=== PATIENT | female | born 1965 | race Caucasian/White ===

== ENCOUNTER 2016-09-12 10:38 | Outpatient (CLI) | payer OTHER | END 2016-09-12 10:39 | disposition home or self-care (01) | DX: Z00.00 Encounter for general adult medical examination without abnormal findings (principal) ==

== ENCOUNTER 2017-09-13 11:05 | Day surgery (SDC) | payer OTHER ==
[2017-09-13] MEDS ORDERED: LACTATED RINGERS 1,000 ML IV ONE ×2 (11:33→12:45)
[2017-09-13] MEDS ORDERED: MIDAZOLAM 2 MG/2 ML VIAL IVP ONE (12:00)
[2017-09-13] MEDS ORDERED: fentaNYL 100 MCG/2 ML VIAL IVP ONE (12:00)
[2017-09-13 14:02] VITALS: BP 92/46
== END 2017-09-13 11:06 | disposition home or self-care (01) ==
LOC: SDS 11:05
PROVIDERS: ATTEND Surgery
PROC: 0DJD8ZZ Inspection of Lower Intestinal Tract, Via Natural or Artificial Opening Endoscopic (ICD-10-PCS; principal; 2017-09-13 13:00)
DX: Z12.11 Encounter for screening for malignant neoplasm of colon (principal); K57.30 Diverticulosis of large intestine without perforation or abscess without bleeding
CPT/HCPCS: 45378; J7120

== ENCOUNTER 2018-10-17 15:03 | Outpatient (CLI) | payer OTHER ==
--- NOTE | 2018-10-30 09:18 | Mammography Report ---
Reason: SCREENING MAMMO Procedure Date: 10/17/2018 Accession Number: [id number] / [id number] Procedure: MARY ANNE - Screening Mammo w/Prakash CPT Code: FULL RESULT: EXAM: Screening Mammo w/Prakash; Right Breast Ultrasound. DATE: 10/17/2018 3:48 PM CLINICAL HISTORY: Palpable right breast mass TECHNIQUE: (B) - Bilateral CC and MLO views were obtained. 3-D mammography was performed. In addition, targeted right breast ultrasound was performed over the palpable abnormality. COMPARISON: 01/15/2017 PARENCHYMAL PATTERN: (A) - The breasts demonstrate scattered fibroglandular densities bilaterally. FINDINGS: No mammographic abnormality in the area of palpable abnormality which is approximately 8:00 position far lateral right breast, actually in the chest wall. There are no suspicious mammographic masses, calcifications, or areas of distortion. In addition, targeted right breast ultrasound was performed revealing a sharply marginated hyperechoic nonvascular mass most likely located in the subcutaneous compartment measuring 3 x 10 mm diameter. This correlates with the palpable abnormality. The findings were discussed with the patient. IMPRESSION: Benign findings. BI-RADS category 2. RECOMMENDATION: (ANNUAL) - Recommend routine annual screening mammography. BI-RADS CATEGORY: (2) - Benign Findings. STANDARD QUALIFYING STATEMENTS: 1. This examination was not reviewed with the aid of Computer-Aided Detection (CAD). 2. A negative or benign imaging report should not preclude biopsy if clinically suspicious findings are present. 3. Dense breasts may obscure an underlying neoplasm. 4. This examination was reviewed without the aid of 3D breast imaging (tomosynthesis).
== END 2018-10-17 15:04 | disposition home or self-care (01) ==
LOC: DI 15:03
DX: Z12.31 Encounter for screening mammogram for malignant neoplasm of breast (principal)
CPT/HCPCS: 77063; 77067

== ENCOUNTER 2019-03-13 07:30 | Outpatient (CLI) | payer OTHER ==
--- NOTE | 2019-03-13 08:25 | MRI Report ---
Reason: LUMBAR RADICULOPATHY, LEFT Procedure Date: 03/13/2019 Accession Number: [id number] / [id number] Procedure: MRI - Lumbar Spine W/O CPT Code: FULL RESULT: EXAM: MRI LUMBAR SPINE WITHOUT CONTRAST EXAM DATE: 03/13/2019 08:08 AM. CLINICAL HISTORY: 53-year-old female. LUMBAR RADICULOPATHY, LEFT. COMPARISON: LUMBAR SPINE 2 VIEW 02/17/2019 9:33 AM. TECHNIQUE: Multiplanar, multisequence T1-weighted and fluid-sensitive sequences of the lumbar spine from T12 to S1 without contrast. Other: None. FINDINGS: Spinal Canal: The conus terminates at L1. The conus medullaris and cauda equina are unremarkable. Alignment: No scoliosis or spondylolisthesis. Bone Marrow: Five upv-jxk-vfvjaks lumbar vertebral bodies are assumed. No gross fractures or bone lesions. No bone marrow replacement. Disk Levels/Facets: T12-L1: Unremarkable. L1-L2: Unremarkable. L2-L3: There is disk desiccation. Mild diffuse disk bulge. Mild anterior dural compression. No significant central canal narrowing. Mild bilateral foraminal narrowing. L3-L4: There is disk desiccation. Mild diffuse disk. Mild anterior dural compression. No significant central canal narrowing. Mild to moderate left to mild right foraminal narrowing. L4-L5: There is statistically. Mild diffuse disk bulge with an annular fissure. Mild anterior dural compression. No significant central canal narrowing. Mild bilateral foraminal narrowing. L5-S1: Mild disk height loss and desiccation. Mild diffuse disk bulge. Mild and due to compression. No significant central canal narrowing. Mild bilateral foraminal narrowing. Musculature: Normal. No edema or fatty atrophy. Other: The partially visualized retroperitoneum is unremarkable. IMPRESSION: 1. Mild multilevel degenerative spondylosis, as detailed above and summarized below. No acute fracture or malalignment. No bone marrow edema. No cord signal abnormality. 2. L2-L3: No significant central canal narrowing. Mild bilateral foraminal narrowing. 3. L3-L4: No significant central canal narrowing. Mild to moderate left to mild right foraminal narrowing. 4. L4-L5: No significant central canal narrowing. Mild bilateral foraminal narrowing. 5. L5-S1: No significant central canal narrowing. Mild bilateral foraminal narrowing. Comment: The following findings are so common in adults without low back pain that while we report their presence, they must be interpreted with caution and in the context of the clinical situation. (Reference Sonk et al, Spine 2001) Prevalence of findings in patients without low back pain: Disk degeneration (any evidence): 92% Disk desiccation/T2 signal loss: 83% Disk height loss: 56% Disk bulge: 64% Disk protrusion: 32% Annular tear/high intensity zone: 38% RADIA
== END 2019-03-13 07:31 | disposition home or self-care (01) ==
LOC: DI 07:30
PROVIDERS: ATTEND Orthopaedic Surgery Sports Medicine
DX: M51.36 Other intervertebral disc degeneration, lumbar region (principal); M48.061 Spinal stenosis, lumbar region without neurogenic claudication; M51.37 Other intervertebral disc degeneration, lumbosacral region; M48.07 Spinal stenosis, lumbosacral region
CPT/HCPCS: 72148

== ENCOUNTER 2019-10-29 16:35 | Outpatient (CLI) | payer OTHER | END 2019-10-29 16:36 | disposition home or self-care (01) | LOC: COV 16:35 | PROVIDERS: ATTEND Family Medicine | DX: R50.9 Fever, unspecified (principal); R05 Cough; M79.10 Myalgia, unspecified site; R53.83 Other fatigue; Z20.828 Contact with and (suspected) exposure to other viral communicable diseases | CPT/HCPCS: 81599 ==

== ENCOUNTER 2019-11-19 08:00 | Outpatient (CLI) | payer OTHER | END 2019-11-19 08:01 | disposition home or self-care (01) | LOC: LAB 08:00 | PROVIDERS: ATTEND Emergency Medicine | DX: Z11.59 Encounter for screening for other viral diseases (principal) | CPT/HCPCS: 81599 ==

== ENCOUNTER 2020-03-30 09:40 | Outpatient (CLI) | payer OTHER ==
[2020-03-30 12:14] LABS: BASOPHILS # (AUTO) 0.1 10^3/uL (0.0-0.1); BASOPHILS % (AUTO) 1.2 %; EOSINOPHILS # (AUTO) 0.2 10^3/uL (0.0-0.7); EOSINOPHILS % (AUTO) 3.1 %; HGB - HEMOGLOBIN 13.3 g/dL (12.0-16.0); LYMPHOCYTES # (AUTO) 1.7 10^3/uL (1.5-3.5); LYMPHOCYTES % (AUTO) 33.7 %; MEAN CORPUSCULAR HEMOGLOBIN 29.2 pg (27.0-31.0); MEAN CORPUSCULAR HGB CONC 31.3 g/dL (32.0-36.0); MEAN CORPUSCULAR VOLUME 93.4 fL (81.0-99.0); MEAN PLATELET VOLUME 10.6 fL (7.9-10.8); MONOCYTES # (AUTO) 0.4 10^3/uL (0.0-1.0); MONOCYTES % (AUTO) 6.8 %; NEUTROPHILS # (AUTO) 2.8 10^3/uL (1.5-6.6); PLT - PLATELET COUNT 286 10^3/uL (130-450); RED BLOOD COUNT 4.55 10^6/uL (4.20-5.40); RED CELL DISTRIBUTION WIDTH 13.6 % (12.0-15.0); WHITE BLOOD COUNT 5.1 x10^3/uL (4.8-10.8)
[2020-03-30 12:48] LABS: ALBUMIN 4.7 g/dL (3.2-5.5); ALBUMIN/GLOBULIN RATIO 1.7 (1.0-2.2); ALKALINE PHOSPHATASE 58 IU/L (42-121); ALT ALANINE AMINOTRANSFERASE 25 IU/L (10-60); AST ASPARTATE AMINOTRANSFERASE 20 IU/L (10-42); BILIRUBIN,TOTAL 1.1 mg/dL (0.2-1.0); BUN - BLOOD UREA NITROGEN 14 mg/dL (6-20); CALCIUM 9.4 mg/dL (8.5-10.3); CARBON DIOXIDE - CO2 27 mmol/L (21-32); CHLORIDE 101 mmol/L (101-111); CHOL/HDL RATIO 2.3 (<4.4); CHOLESTEROL 219 mg/dL; CREATININE 0.8 mg/dL (0.4-1.0); GLUCOSE 78 mg/dL (70-100); HDL CHOLESTEROL 97 mg/dL; LDL CHOLESTEROL,CALCULATED 108 mg/dL; LDL/HDL RATIO 1.1 (<4.4); SODIUM 137 mmol/L (135-145); TOTAL PROTEIN 7.5 g/dL (6.7-8.2); VLDL CHOLESTEROL 14 mg/dL
== END 2020-03-30 23:59 | disposition home or self-care (01) ==
LOC: LAB.WCP 09:40
PROVIDERS: ATTEND Nurse Practitioner
DX: Z00.00 Encounter for general adult medical examination without abnormal findings (principal); Z87.19 Personal history of other diseases of the digestive system; Z13.228 Encounter for screening for other metabolic disorders; Z13.220 Encounter for screening for lipoid disorders
CPT/HCPCS: 36415; 80053; 80061; 83721; 85025

== ENCOUNTER 2021-06-23 11:17 | Outpatient (CLI) | payer OTHER ==
--- NOTE | 2021-06-24 11:30 | Mammography Report ---
BILATERAL DIGITAL SCREENING MAMMOGRAM 3D/2D: 06/23/2021 CLINICAL: Routine screening. Comparison is made to exams dated: 10/17/2018 mammogram - [facility] and 05/01/2014 mammogram - [facility]. There are scattered fibroglandular elements in both breasts . No significant masses, calcifications, or other findings are seen in either breast. There has been no significant interval change. IMPRESSION: NEGATIVE There is no mammographic evidence of malignancy. A 1 year screening mammogram is recommended. This exam was interpreted at Station ID: [id number]. NOTE: For mammograms, a report in lay terms will be sent to the patient. Approximately 15% of breast malignancies will not be visualized mammographically. In the management of a palpable breast mass, a negative mammogram must not discourage biopsy of a clinically suspicious lesion. Electronically Signed By: Bonilla Cadet acr/penrad:06/23/2021 16:41:52 ACR BI-RADS Category 1: Negative 3341F PARENCHYMAL PATTERN: (A) - The breast(s) demonstrate(s) scattered fibroglandular densities. BI-RADS CATEGORY: (1) - 1 RECOMMENDATION: (ANNUAL) - Recommend routine annual screening mammography. [id number] 1 year screening LATERALITY: (B)
== END 2021-06-23 11:18 | disposition home or self-care (01) ==
LOC: DI 11:17
DX: Z12.31 Encounter for screening mammogram for malignant neoplasm of breast (principal)

== ENCOUNTER 2022-11-22 08:48 | Outpatient (CLI) | payer OTHER ==
--- NOTE | 2022-11-23 09:12 | Mammography Report ---
BILATERAL DIGITAL SCREENING MAMMOGRAM 3D/2D: 11/22/2022 CLINICAL: Routine screening. Comparison is made to exams dated: 06/23/2021 mammogram, 10/17/2018 mammogram - [facility], and 05/01/2014 mammogram - [facility]. There are scattered areas of fibroglandular density in both breasts (category b / 25%-50% glandular t issue). No significant masses, calcifications, or other findings are seen in either breast. There has been no significant interval change. IMPRESSION: NEGATIVE There is no mammographic evidence of malignancy. A 1 year screening mammogram is recommended. Based on the Tyrer Cuzick model (a risk assessment model) the patients lifetime risk is 5.9% and her 10 year risk is 1.8%. According to the ACR, ACS, and NCCN guidelines, an annual breast MRI exam armando g with mammogram is recommended if the patients lifetime risk is 20% or greater. This exam was interpreted at Station ID: [id number]. NOTE: For mammograms, a report in lay terms will be sent to the patient. Approximately 15% of breast malignancies will not be visualized mammographically. In the management of a palpable breast mass, a negative mammogram must not discourage biopsy of a clinically suspicious lesion. Electronically Signed By: Karri josue/melony:11/22/2022 10:37:32 letter sent: No_Letter ACR BI-RADS Category 1: Negative 3341F PARENCHYMAL PATTERN: (A) - The breast(s) demonstrate(s) scattered fibroglandular densities. BI-RADS CATEGORY: (1) - 1 Mammogram [id number] 1 year screening LATERALITY: (B)
== END 2022-11-22 08:49 | disposition home or self-care (01) ==
LOC: DI 08:48
DX: Z12.31 Encounter for screening mammogram for malignant neoplasm of breast (principal)

== ENCOUNTER 2023-08-08 10:15 | Outpatient (CLI) | payer OTHER ==
[2023-08-08 10:52] LABS: BASOPHILS # (AUTO) 0.1 10^3/uL (0.0-0.1); BASOPHILS % (AUTO) 1.1 %; EOSINOPHILS # (AUTO) 0.2 10^3/uL (0.0-0.7); EOSINOPHILS % (AUTO) 2.8 %; HCT - HEMATOCRIT 43.9 % (37.0-47.0); HGB - HEMOGLOBIN 13.7 g/dL (12.0-16.0); LYMPHOCYTES % (AUTO) 31.9 %; MEAN CORPUSCULAR HEMOGLOBIN 28.5 pg (27.0-31.0); MEAN CORPUSCULAR HGB CONC 31.2 g/dL (32.0-36.0); MEAN CORPUSCULAR VOLUME 91.3 fL (81.0-99.0); MEAN PLATELET VOLUME 9.5 fL (7.9-10.8); MONOCYTES # (AUTO) 0.5 10^3/uL (0.0-1.0); MONOCYTES % (AUTO) 7.7 %; NEUTROPHILS # (AUTO) 3.4 10^3/uL (1.5-6.6); NEUTROPHILS % (AUTO) 56.2 %; PLT - PLATELET COUNT 302 10^3/uL (130-450); RED BLOOD COUNT 4.81 10^6/uL (4.20-5.40); RED CELL DISTRIBUTION WIDTH 13.6 % (12.0-15.0); WHITE BLOOD COUNT 6.1 x10^3/uL (4.8-10.8)
[2023-08-08 11:28] LABS: ALBUMIN 4.6 g/dL (3.2-5.5); ALBUMIN/GLOBULIN RATIO 1.7 (1.0-2.2); ALKALINE PHOSPHATASE 70 IU/L (42-121); ALT ALANINE AMINOTRANSFERASE 25 IU/L (10-60); AST ASPARTATE AMINOTRANSFERASE 23 IU/L (10-42); BILIRUBIN,TOTAL 0.5 mg/dL (0.2-1.0); BUN - BLOOD UREA NITROGEN 15 mg/dL (6-20); CALCIUM 9.6 mg/dL (8.5-10.3); CARBON DIOXIDE - CO2 29 mmol/L (21-32); CHLORIDE 105 mmol/L (101-111); CHOL/HDL RATIO 2.3 (<4.4); CHOLESTEROL 203 mg/dL; CREATININE 0.8 mg/dL (0.6-1.3); GFR - MDRD 74 (>89); GLUCOSE 78 mg/dL (74-104); HDL CHOLESTEROL 89 mg/dL; LDL CHOLESTEROL,CALCULATED 98 mg/dL; LDL/HDL RATIO 1.1 (<4.4); POTASSIUM 4.2 mmol/L (3.5-4.5); SODIUM 141 mmol/L (135-145); TOTAL PROTEIN 7.3 g/dL (6.4-8.9); TRIGLYCERIDES 81 mg/dL (48-352); VLDL CHOLESTEROL 16 mg/dL
[2023-08-08 11:33] LABS: THYROID STIMULATING HORMONE 2.64 uIU/mL (0.34-5.60)
--- NOTE | 2023-08-08 12:40 | XRAY Report ---
PROCEDURE: Hips w/Pelvis 2-3V BL INDICATIONS: LEFT HIP PAIN TECHNIQUE: AP view the pelvis and bilateral frog-leg lateral view(s) of the hips were acquired. COMPARISON: None FINDINGS: Bones: No fractures or dislocations. No suspicious bony lesions. The visualized pelvic ring appear s intact. Mild right hip degenerative change. Moderate left hip degenerative change. Soft tissues: No suspicious soft tissue calcifications or masses. IMPRESSION: Bilateral hip degenerative change, left greater than right. Reviewed by: Rogers Ortiz MD on 08/08/2023 12:38 PM PST Approved by: Rogers Ortiz MD on 08/08/2023 12:38 PM PST Station ID: [id number]
== END 2023-08-08 10:16 | disposition home or self-care (01) ==
LOC: DI 10:15
PROVIDERS: ATTEND Physician Assistant Medical
DX: Z00.00 Encounter for general adult medical examination without abnormal findings (principal); M16.0 Bilateral primary osteoarthritis of hip
CPT/HCPCS: 36415; 80053; 80061; 83721; 84443; 85025

== ENCOUNTER 2024-01-07 10:15 | Outpatient (CLI) | payer OTHER ==
[2024-01-07 10:51] LABS: BILIRUBIN,URINE NEGATIVE (NEGATIVE); GLUCOSE, URINE (UA) NEGATIVE (NEGATIVE); KETONES,URINE (UA) TRACE mg/dL (NEGATIVE); LEUKOCYTE ESTERASE, URINE TRACE (NEGATIVE); NITRITE,URINE NEGATIVE (NEGATIVE); OCCULT BLOOD,URINE NEGATIVE (NEGATIVE); PROTEIN,URINE TRACE mg/dL (NEGATIVE); UROBILINOGEN,URINE 0.2 (NORMAL) E.U./dL (NORMAL)
[2024-01-07 10:52] LABS: CLARITY,URINE CLEAR (CLEAR)
[2024-01-07 11:01] LABS: RBC,URINE 0-5 /HPF (0-5)
[2024-01-07 11:02] LABS: BACTERIA,URINE Few /HPF (None Seen); MUCUS,URINE Moderate Strands; SQUAMOUS EPITHELIAL CELL,UR MOD Squamous (<= Few)
== END 2024-01-07 10:16 | disposition home or self-care (01) ==
LOC: LAB 10:15
PROVIDERS: ATTEND Physician Assistant Medical
DX: R31.9 Hematuria, unspecified (principal)
CPT/HCPCS: 81001; 87086

== ENCOUNTER 2024-01-16 14:48 | Outpatient (CLI) | payer OTHER ==
--- NOTE | 2024-01-16 21:16 | Ultrasound Report ---
PROCEDURE: Renal (Retroperitoneal) INDICATIONS: HEMATURIA TECHNIQUE: Real-time scanning was performed of the retroperitoneal organs, with image documentation. COMPARISON: MRI of lumbar spine dated 03/13/2019. FINDINGS: Kidneys: Kidneys are normal in size. Right kidney measures 11.5 cm long; left kidney measures 10.98 cm long. Right renal cortical thickness is 1.1 cm; left renal cortical thickness is 1.5 cm. No estrada id masses, hydronephrosis, or nephrolithiasis. Bladder: Pre-void bladder volume is 67.79 mL. Post-void residual is 22.69 mL. Pre-void images demo nstrate no intraluminal masses or stones. On pre-void images, bilateral ureteral jets are noted with color Doppler interrogation. (Of note, ureteral jets may not be detectable in up to 25% of cases du e to insufficient differences in specific gravity between ureteral and bladder urine). Miscellaneous: No free abdominal fluid. IMPRESSION: 1. Normal-appearing bilateral kidneys. No solid-appearing renal lesion. No hydronephrosis. 2. Normal appearing partially distended urinary bladder with small postvoid residual. Reviewed by: Gary Maurer MD on 01/16/2024 9:15 PM PDT Approved by: Gary Maurer MD on 01/16/2024 9:15 PM PDT Station ID: [id number]
== END 2024-01-16 14:49 | disposition home or self-care (01) ==
LOC: DI 14:48
PROVIDERS: ATTEND Physician Assistant Medical
DX: R31.9 Hematuria, unspecified (principal)

== ENCOUNTER 2024-02-21 11:46 | Outpatient (CLI) | payer OTHER ==
[2024-02-21] MEDS ORDERED: iohexoL-300 150 ML BOTTLE ONE (11:53)
[2024-02-21] MEDS: iohexoL-300 150 ML BOTTLE IVP ONE (12:30)
--- NOTE | 2024-02-21 16:29 | CT Report ---
PROCEDURE: IVP INDICATIONS: HEMATURIA CONTRAST: Omnipaque 300 140ml TECHNIQUE: A [address] of the abdomen and pelvis was performed. Non-contrast and contrast images were recorded and evaluated at appropriate window settings. Images were recorded and evaluated at appropriate windo w settings. Reformats: coronal and sagittal. For radiation dose reduction, the following was used: au tomated exposure control, adjustment of mA and/or kV according to patient size. COMPARISON: Ultrasound 04/18/2018 FINDINGS: Image quality: Diagnostic. Lower chest: Unremarkable. Liver: No solid mass. Central hepatic cyst. Gallbladder: Surgically absent. Biliary tree: Right-sided intrahepatic biliary dilation (series 10, image 21). Spleen: No splenomegaly. Pancreas: No pancreatic ductal dilation. Adrenals: No adrenal nodule. Kidneys and ureters: Both kidneys are normal in size. No hydronephrosis or nephrolithiasis on pre-con trast images. No solid masses or complex cysts which require follow up. The opacified renal calyces and ureters appear normal, without filling defect. Bilateral renal sinus cysts. Stomach, bowel and peritoneum: No bowel distension. No pathologic free fluid. Diverticulosis without evidence of diverticulitis. Abdominal Lymph nodes: No central or retroperitoneal adenopathy. Vessels: Unremarkable. Patent portal vein. Reproductive organs: Unremarkable. Bladder: No abnormal wall thickening, accounting for underdistention. No calcified bladder stones. No filling defect within the opacified bladder. Pelvic Lymph nodes: Unremarkable. Bones: No aggressive osseous abnormality. Other: None. IMPRESSION: No nephrolithiasis or filling defects within the opacified renal collecting systems or ureters. Bladd er is incompletely distended with contrast. Right-sided intrahepatic biliary dilation. Differential includes obstructing mass, stone or stricture . Recommend MRI/MRCP with contrast. Reviewed by: Lowell Do MD on 02/21/2024 4:28 PM PDT Approved by: Lowell Do MD on 02/21/2024 4:28 PM PDT Station ID: [id number]
== END 2024-02-21 11:47 | disposition home or self-care (01) ==
LOC: DI 11:46
PROVIDERS: ATTEND Urology
DX: R31.9 Hematuria, unspecified (principal); K83.8 Other specified diseases of biliary tract